=== PATIENT | male | born 1990 | race Caucasian/White ===

== ENCOUNTER 2019-05-21 17:57 | Emergency (ER) | payer OTHER ==
--- NOTE | 2019-05-21 19:25 | ED ---
ENT HPI - General Chief complaint: ENT Stated complaint: ear pain Time Seen by Provider: 05/21/19 18:16 Source: patient Mode of arrival: ambulatory Limitations: no limitations - History of Present Illness Initial comments: 28-year-old male presenting for right ear pain 5 days. Patient states 2-3 weeks ago while using a Q-tip to clean his ears he felt immediate pain sharp in the right ear without radiation. He states his hearing became muffled. Patient states that since his hearing is muffled. He states that he feels like there is fluid on his ears. Patient states that at times has sharp pains. She denies any drainage from the ear he denies any fever or chills night sweats. Patient denies swimming after he had the sensation of sharp pain in the right ear. Remaining review of system negative. Upon arrival patient appears well no signs of acute distress. Patient afebrile. - Related Data Allergies Allergy/AdvReac Type Severity Reaction Status Date / Time No Known Allergies Allergy Verified 05/21/19 19:10 Review of Systems ROS Statement: Those systems with pertinent positive or pertinent negative responses have been documented in the HPI. ROS Other: All systems not noted in ROS Statement are negative. Past Medical History Past Medical History: No Reported History History of Any Multi-Drug Resistant Organisms: None Reported Past Surgical History: No Surgical Hx Reported Past Psychological History: No Psychological Hx Reported Smoking Status: Current every day smoker Past Alcohol Use History: Occasional Past Drug Use History: None Reported General Exam - General Exam Comments Initial Comments: General: The patient is awake and alert, in no distress, and does not appear acutely ill. Eye: Pupils are equal, round and reactive to light, extra-ocular movements are intact. No nystagmus. There is normal conjunctiva bilaterally. No signs of icterus. Ears, nose, mouth and throat: There are moist mucous membranes and no oral lesions. Tympanic membranes are obscured by cerumen of the right ear. No blood in the EAC. No external auditory canal swelling. No tenderness to palpation of the mastoid bilaterally. Normal left ear examination. No tenderness to palpation of the pinna or pulling of the auricle. Neck: The neck is supple, there is no tenderness or JVD. Cardiovascular: There is a regular rate and rhythm. No murmur, rub or gallop is appreciated. Respiratory: Lungs are clear to auscultation, respirations are non-labored, breath sounds are equal. No wheezes, stridor, rales, or rhonchi. Musculoskeletal: Normal ROM, no tenderness. Strength 5/5. Sensation intact. Pulses equal bilaterally 2+. Neurological: A&O x 3. CN II-XII intact, There are no obvious motor or sensory deficits. Coordination appears grossly intact. Speech is normal. Skin: Skin is warm and dry and no rashes or lesions are noted. Psychiatric: Cooperative, appropriate mood & affect, normal judgment. Limitations: no limitations Course Vital Signs 05/21/19 05/21/19 19:05 19:35 Temperature 97.6 F 98.0 F Pulse Rate 85 98 Respiratory 16 18 Rate Blood Pressure 157/100 141/88 O2 Sat by Pulse 98 100 Oximetry Medical Decision Making - Medical Decision Making Appearing 28-year-old male. History of using a Q-tip as sharp sudden onset of right ear pain concerning for tympanic membrane perforation. The tympanic membrane is obscured by cerumen. I'm hesitant to irrigate secondary to possible perforation. This time we'll refer patient to ENT for cerumen removal and evaluation tympanic membrane. Patient is agreeable to this care plan and discharge at this time. Patient denies any fevers there is no tenderness to patient the mastoid or physical exam findings consistent with inner ear infection. Return parameters were discussed at length patient verbalizes understanding. Patient was discharged appearing well Disposition Clinical Impression: Right ear pain Disposition: HOME SELF-CARE Condition: Good Instructions (If sedation given, give patient instructions): Ruptured Eardrum (ED), Earache (ED) Additional Instructions: Please use medication as discussed. Please follow-up with family doctor in the next 2 days, and ENT within next week. Please return to emergency room if the symptoms increase or worsen or for any other concerns. Is patient prescribed a controlled substance at d/c from ED?: No Referrals: None,Stated [Primary Care Provider] - 1-2 days Elie Velázquez MD [STAFF PHYSICIAN] - 1-2 days Time of Disposition: 19:24
[2019-05-21 19:36] VITALS: BP 141/88; PULSE 98; RESP 18; TEMP 98
== END 2019-05-21 19:36 | disposition home or self-care (01) ==
LOC: EC 17:57
DX: H92.01 Otalgia, right ear (principal); H61.21 Impacted cerumen, right ear; F17.200 Nicotine dependence, unspecified, uncomplicated
CPT/HCPCS: 99282

== ENCOUNTER 2020-05-21 13:14 | Emergency (ER) | payer OTHER ==
[2020-05-21 13:23] VITALS: BP 140/84; PULSE 88; RESP 16; TEMP 98.2
--- NOTE | 2020-05-21 13:36 | ED ---
General Adult HPI - General Chief complaint: Extremity Injury, Upper Stated complaint: Spider Bite Time Seen by Provider: 05/21/20 13:23 Source: patient, RN notes reviewed, old records reviewed Mode of arrival: ambulatory Limitations: no limitations - History of Present Illness Initial comments: 29-year-old male otherwise healthy with no chronic medical conditions presented with right hand swelling. He states he was bit or stung by an insect, thought this might have been a spider on the dorsum of the right hand. He's had swelling in the hand extending into the wrist. He denies IV drug use. Denies fever. No other constitutional complaints. - Related Data Previous Rx's Medication Instructions Recorded Cephalexin [Keflex] 500 mg PO Q6HR #40 cap 05/21/20 Sulfamethox-Tmp 800-160Mg [Bactrim 1 tab PO Q12HR #20 tab 05/21/20 DS 800-160 mg] Allergies Allergy/AdvReac Type Severity Reaction Status Date / Time No Known Allergies Allergy Verified 05/21/19 19:10 Review of Systems ROS Statement: Those systems with pertinent positive or pertinent negative responses have been documented in the HPI. ROS Other: All systems not noted in ROS Statement are negative. Past Medical History Past Medical History: No Reported History History of Any Multi-Drug Resistant Organisms: None Reported Past Surgical History: No Surgical Hx Reported Past Psychological History: No Psychological Hx Reported Smoking Status: Current every day smoker Past Alcohol Use History: Occasional Past Drug Use History: Marijuana General Exam Limitations: no limitations General appearance: alert, in no apparent distress Head exam: Present: atraumatic, normocephalic Eye exam: Present: normal appearance, PERRL ENT exam: Present: normal exam Neck exam: Present: normal inspection. Absent: tenderness, meningismus Cardiovascular Exam: Present: regular rate, normal rhythm GI/Abdominal exam: Present: soft. Absent: distended Extremities exam: Present: other (Right hand, distal pulses are intact, normal cap refill, soft tissue swelling on the dorsum of the hand. There is no pain with range of motion of the fingers. There is no induration, no drainable abscess.) Course Vital Signs 05/21/20 13:21 Temperature 98.2 F Pulse Rate 88 Respiratory 16 Rate Blood Pressure 140/84 O2 Sat by Pulse 99 Oximetry Medical Decision Making - Medical Decision Making 21-year-old male with insect bite to the dorsum of the right hand. There is soft tissue swelling, no induration, no abscess, no signs of synovitis. Patient is otherwise healthy with no chronic medical conditions. He will ice and elevate the extremity, he will take Benadryl for itching, he is prescribed Bactrim and Keflex for secondary cellulitis. He is given strict return parameters and will watch his hand over the next 12-24 hours and return to emergency department with any worsening swelling, pain, fever, any worsening symptoms. Disposition Clinical Impression: Cellulitis of right hand Disposition: HOME SELF-CARE Condition: Good Instructions (If sedation given, give patient instructions): Cellulitis (ED) Prescriptions: Sulfamethox-Tmp 800-160Mg [Bactrim DS 800-160 mg] 1 tab PO Q12HR #20 tab Cephalexin [Keflex] 500 mg PO Q6HR #40 cap Is patient prescribed a controlled substance at d/c from ED?: No Referrals: Patrick Nj MD [Primary Care Provider] - 1-2 days Time of Disposition: 13:32
== END 2020-05-21 14:04 | disposition home or self-care (01) ==
LOC: EC 13:14
DX: L03.113 Cellulitis of right upper limb (principal); F17.200 Nicotine dependence, unspecified, uncomplicated
CPT/HCPCS: 99283

== ENCOUNTER 2020-07-01 21:01 | Emergency (ER) | payer OTHER ==
[2020-07-01 21:08] VITALS: BP 147/83; PULSE 118; RESP 20; TEMP 99.8
[2020-07-01] MEDS ORDERED: LIDOCAINE 1% INJ 10MG/ML (20 ML MDV) SQ ONE (21:34)
--- NOTE | 2020-07-01 21:34 | ED ---
Wound/Laceration HPI - General Chief Complaint: Wound/Laceration Stated Complaint: Correction Clearance, Finger Lac Source: patient Mode of arrival: ambulatory Limitations: no limitations - History of Present Illness Initial Comments: Patient is a 29-year-old male presenting to the emergency department with a chief complaint of a laceration. Patient is brought to the ED by police of [employer]. Patient states he was drinking slightly and he lacerated his right fourth and fifth digit. Patient states there is no numbness and tingling. States there is minimal pain. Not aware of his tetanus status. Does not take any blood thinners. This occurred about one hour prior to arrival. No alleviating or aggravating factors. - Related Data Previous Rx's Medication Instructions Recorded Cephalexin [Keflex] 500 mg PO Q6HR #40 cap 05/21/20 Sulfamethox-Tmp 800-160Mg [Bactrim 1 tab PO Q12HR #20 tab 05/21/20 DS 800-160 mg] Allergies Allergy/AdvReac Type Severity Reaction Status Date / Time No Known Allergies Allergy Verified 07/01/20 21:08 Review of Systems ROS Statement: Those systems with pertinent positive or pertinent negative responses have been documented in the HPI. ROS Other: All systems not noted in ROS Statement are negative. Past Medical History Past Medical History: No Reported History History of Any Multi-Drug Resistant Organisms: None Reported Past Surgical History: No Surgical Hx Reported Past Psychological History: No Psychological Hx Reported Smoking Status: Current every day smoker Past Alcohol Use History: Occasional Past Drug Use History: Marijuana General Exam Limitations: no limitations General appearance: alert, in no apparent distress Head exam: Present: atraumatic, normocephalic, normal inspection Eye exam: Present: normal appearance, PERRL, EOMI Pupils: Present: normal accommodation ENT exam: Present: normal exam, normal oropharynx, mucous membranes moist Neck exam: Present: normal inspection, full ROM. Absent: tenderness Respiratory exam: Present: normal lung sounds bilaterally. Absent: respiratory distress, wheezes, rales Cardiovascular Exam: Present: regular rate, normal rhythm, normal heart sounds. Absent: bradycardia, tachycardia Extremities exam: Present: full ROM, normal capillary refill, other (+2 ulnar and radial pulses bilaterally.). Absent: normal inspection (2 lacerations measuring approximately 1 cm in length on the third and fourth digit of the right hand.), tenderness, pedal edema, joint swelling Back exam: Present: normal inspection, full ROM. Absent: tenderness Neurological exam: Present: alert, oriented X3, CN II-XII intact, normal gait Psychiatric exam: Present: normal affect, normal mood Skin exam: Present: warm, dry, intact, normal color Course Vital Signs 07/01/20 21:05 Temperature 99.8 F H Pulse Rate 118 H Respiratory 20 Rate Blood Pressure 147/83 O2 Sat by Pulse 96 Oximetry Procedures - Laceration Laceration #1 Consent Obtained: verbal consent Indication: laceration Site: hand (Fourth digit) Size (cm): 1 Description: linear, clean Depth: simple, single layer Sedation/Analgesia: none Pre-repair: irrigated extensively, deep structures intact Type of Sutures: nylon Size of Sutures: 4-0 Number of Sutures: 1 Technique: simple, interrupted Patient Tolerated Procedure: well, no complications Laceration #2 Consent Obtained: verbal consent Indication: laceration Site: hand (Third digit) Size (cm): 1 Description: linear, clean Depth: simple, single layer Sedation/Analgesia: none Pre-repair: irrigated extensively, deep structures intact Type of Sutures: nylon Size of Sutures: 4-0 Number of Sutures: 2 Technique: simple, interrupted Complications: pain Patient Tolerated Procedure: well, no complications Medical Decision Making - Medical Decision Making Patient is 29-year-old male presenting to the emergency department with a chief complaint of laceration. Laceration site was repaired with 2 sutures on the third digit and one suture on the fourth digit. Laceration sites were thoroughly cleaned. His tetanus was updated. Patient advised to return in 10 days for suture removal. Patient cleared medically for detention. Case discussed physician. Disposition Clinical Impression: Laceration Disposition: HOME SELF-CARE Condition: Stable Instructions (If sedation given, give patient instructions): Care For Your Stitches (DC), Laceration (DC) Additional Instructions: Return to emergency department in 10 days for suture removal. Is patient prescribed a controlled substance at d/c from ED?: No Referrals: Patrick Nj MD [Primary Care Provider] - 1-2 days Time of Disposition: 22:02
[2020-07-01] MEDS ORDERED: DIPH,PERTUS(ACELL)TETVAC-LF 0.5 ML VIAL IM ONE (21:38)
== END 2020-07-01 22:08 | disposition home or self-care (01) ==
LOC: EC 21:01
DX: Z02.89 Encounter for other administrative examinations (principal); S61.214A Laceration without foreign body of right ring finger without damage to nail, initial encounter; S61.212A Laceration without foreign body of right middle finger without damage to nail, initial encounter; Z23 Encounter for immunization; F17.200 Nicotine dependence, unspecified, uncomplicated; W45.8XXA Other foreign body or object entering through skin, initial encounter
CPT/HCPCS: 12001; 90471; 90715; 99282